=== PATIENT | male | born 1950 | race Caucasian/White ===

== ENCOUNTER → 2019-07-09 | Outpatient (CLI) | payer MEDICARE | END | disposition home or self-care (01) | LOC: ROC 07:40 | PROVIDERS: ATTEND Radiology Radiation Oncology | DX: C20 Malignant neoplasm of rectum (principal) | CPT/HCPCS: 99213; G0463 ==

== ENCOUNTER → 2019-07-10 | Outpatient (CLI) | payer MEDICARE ==
[~2019-07-10] MED LIST: OMNIPAQUE 350 MG/ML, 100ML BOTTLE ONE
== END | disposition home or self-care (01) ==
LOC: RAD 13:03
PROVIDERS: ATTEND Internal Medicine Hematology & Oncology
DX: C20 Malignant neoplasm of rectum (principal); J90 Pleural effusion, not elsewhere classified; J98.4 Other disorders of lung; K76.9 Liver disease, unspecified; J98.11 Atelectasis; R18.8 Other ascites
CPT/HCPCS: 71260; 74177; Q9967

== ENCOUNTER → 2019-11-05 | Outpatient (CLI) | payer MEDICARE | END | disposition home or self-care (01) | LOC: CFH 13:24 | PROVIDERS: ATTEND Internal Medicine Hematology & Oncology | DX: C20 Malignant neoplasm of rectum (principal); J90 Pleural effusion, not elsewhere classified; R18.8 Other ascites | CPT/HCPCS: 71260; 74177; Q9967 ==

== ENCOUNTER → 2020-10-06 | Outpatient (CLI) | payer MEDICARE | END | disposition home or self-care (01) | LOC: WOUND 12:35 | PROVIDERS: ATTEND Nurse Practitioner Family | DX: Z43.3 Encounter for attention to colostomy (principal); C20 Malignant neoplasm of rectum; Z90.89 Acquired absence of other organs | CPT/HCPCS: G0463 ==

== ENCOUNTER 2020-10-28 13:46 | Outpatient (CLI) | payer MEDICARE | END 2020-10-28 23:59 | disposition home or self-care (01) | LOC: WOUND 13:46 | PROVIDERS: ATTEND Nurse Practitioner Family | DX: Z93.3 Colostomy status (principal); L25.9 Unspecified contact dermatitis, unspecified cause; E78.5 Hyperlipidemia, unspecified; C20 Malignant neoplasm of rectum; Z90.89 Acquired absence of other organs | CPT/HCPCS: G0463 ==

== ENCOUNTER 2020-11-11 11:12 | Outpatient (CLI) | payer MEDICARE | END 2020-11-11 23:59 | disposition home or self-care (01) | LOC: WOUND 11:12 | PROVIDERS: ATTEND Internal Medicine Infectious Disease | DX: Z93.3 Colostomy status (principal); L25.9 Unspecified contact dermatitis, unspecified cause; E78.5 Hyperlipidemia, unspecified; Z90.89 Acquired absence of other organs; Z85.048 Personal history of other malignant neoplasm of rectum, rectosigmoid junction, and anus | CPT/HCPCS: G0463 ==

== ENCOUNTER → 2020-11-25 | Outpatient (CLI) | payer MEDICARE | END | disposition home or self-care (01) | LOC: WOUND 14:08 | PROVIDERS: ATTEND Nurse Practitioner Family | DX: Z93.3 Colostomy status (principal); L25.9 Unspecified contact dermatitis, unspecified cause; E78.5 Hyperlipidemia, unspecified; Z90.89 Acquired absence of other organs; Z85.048 Personal history of other malignant neoplasm of rectum, rectosigmoid junction, and anus | CPT/HCPCS: G0463 ==